=== PATIENT | male | born 1930 | race Caucasian/White ===

== ENCOUNTER 2018-08-09 12:56 | Inpatient (IN) | payer MEDICARE, MEDICAID ==
[2018-08-09 14:45] VITALS: BP 114/56
--- NOTE | 2018-08-09 17:08 | NUR ---
RECEIVED REPORT FROM RN AT [facility] PT ARRIVED ON UNIT AROUND 1445. ASSUMED CARE. VSS. [employer] OPERATOR HELPER PLACED TRACING AV PACED. PT CONFUSED AND VERY TIRED, LETHARGIC. ORIENTED TO SELF ONLY. DENIES PAIN. LUNGS COARSE AND WET THROUGHOUT. PT PLACED ON 2L PER NC, O2 SAT >90%. NPC NOTED. HEAD OF BED ELEVATED. PT SEEN BY CARDIOLOGY. ADMISSON ASSESSMENT, HISTORY AND VITALS COMPLETED CHARTED. PT ORIENTED TO ROOM BED AND CALL LIGHT. PT BEING TURNED Q2HRS FOR SKIN INTEGRITY - BOTTOM BLANCHABLE RED. FALL PRECAUTIONS IN PLACE. CALL LIGHT IS WITHIN REACH. HOURLY ROUNDING. WCTM.
[2018-08-09] MEDS ORDERED: TYLENOL325 MG PO (17:09)
[2018-08-09] MEDS ORDERED: ALBUTEROL2.5 MG/31 INH (17:09)
[2018-08-09] MEDS ORDERED: LIPITOR10 MG PO (17:11)
[2018-08-09] MEDS ORDERED: ASPIR 8181 MG PO (17:11)
[2018-08-09] MEDS ORDERED: MAALOX ADVANCE355 M1 PO (17:11)
[2018-08-09] MEDS ORDERED: COREG6.25 MG PO (17:12)
[2018-08-09] MEDS ORDERED: CELEXA20 MG PO (17:13)
[2018-08-09] MEDS ORDERED: PLAVIX 75 MG TA75 M1 PO (17:13)
[2018-08-09] MEDS ORDERED: IRON325 PO (17:14)
[2018-08-09] MEDS ORDERED: VITAMIN B-12500 MCG PO (17:14)
[2018-08-09] MEDS ORDERED: LASIX 40 MG TAB40 M2 PO (17:14)
[2018-08-09] MEDS ORDERED: NORCO 7.5-3251 EACH PO (17:15)
[2018-08-09] MEDS ORDERED: LISINOPRIL20 MG PO (17:16)
[2018-08-09] MEDS ORDERED: REMERON15 MG PO (17:17)
[2018-08-09] MEDS ORDERED: MILK OF MA400 MG/5 M PO (17:17)
[2018-08-09] MEDS ORDERED: PROTONIX40 M1 PO (17:18)
[2018-08-09] MEDS ORDERED: LIQUITEARS15 ML OPHTHALMIC (17:19)
[2018-08-09] MEDS ORDERED: SEROQUEL 25 MG25 M1 PO (17:20)
[2018-08-09] MEDS ORDERED: KLOR-CON 1010 MEQ PO (17:20)
[2018-08-09] MEDS ORDERED: SENNA8.6 MG PO (17:21)
[2018-08-09] MEDS ORDERED: TERAZOSIN HCL10 MG PO (17:23)
--- NOTE | 2018-08-09 17:38 | NUR ---
CONTACTED PT'S GUARDIAN MARIELY VELVET ([phone]) TO GIVE HER AN UPDATE ON PT. FOUND OUT THAT PT IS A RESIDENT OF [facility] IN [facility]. CALLED [facility] TO OBTAIN MED LIST - FACILITY TO FAX LIST.
--- NOTE | 2018-08-09 18:42 | NUR ---
VSS. PT ABLE TO WAKE UP FOR DINNER, ASSISTED PT WITH MEAL. PT HAD POOR APPETITE, BUT DID EAT HIS MASHED POTATOES AND SHERBERT. PT INCONTINENT OF URINE TWICE, BED CHANGED. UA ORDERED. ATTEMPTED TO PLACE CATHETER TO OBTAIN UA PER ORDER, BUT PT REFUSED SAYING "I CAN USE THE URINAL". WILL ALLOW PT TIME TO USE THE URINAL TO GET SAMPLE. PT CONTINUING TO BE TURNED. PT CONTINUES TO DENY PAIN. FALL PRECAUTIONS IN PLACE .CALL LIGHT IS WITHIN REACH. HOURLY ROUNDING PERFORMED.
[2018-08-09 20:10] VITALS: BP 100/33
[2018-08-09 23:21] LABS: BE 0.7 mmol/L (-2 to +3); PCO2 35.9 mmHg (35.0-45.0); PO2 71.2 mmHg (75.0-100.0); pH 7.451 (7.340-7.450)
[2018-08-10] VITALS (8 sets, daily range): BP systolic 89–133; BP diastolic 25–57
[2018-08-10 01:15] LABS: URINE BILIRUBIN NEGATIVE (Negative); URINE BLOOD 3+ (Negative); URINE CLARITY SL CLOUDY; URINE COLOR YELLOW; URINE GLUCOSE-RANDOM NEGATIVE (Negative); URINE KETONES NEGATIVE (Negative); URINE LEUKOCYTES TRACE (Negative); URINE NITRITE NEGATIVE (Negative); URINE PROTEIN TRACE (Negative)
[2018-08-10 03:10] LABS: SQUAMOUS >10 Many /LPF (0-3)
[2018-08-10 03:11] LABS: HYALINE CASTS >10 Many /LPF (None Seen)
[2018-08-10 03:14] LABS: URINE RBC >20 Many /HPF (0-2); URINE WBC 6-15 Few /HPF (0-5)
[2018-08-10 03:15] LABS: AMORPHOUS URATES Moderate /LPF (None Seen); BACTERIA >30 Many /HPF (None Seen)
--- NOTE | 2018-08-10 05:10 | NUR ---
PATIENT HAD LOW BP AND HIGH RESPIRATORY RATE AT BEGINNING OF SHIFT WITH COARSE AND WHEEZY LUNG SOUNDS. PHYSICIAN NOTIFIED AND ORDERS OBTAINED FOR ABGS AND BIPAP. HALF-WAY FAXED OVER COPY OF OHDNR ORDER AND DAUGHTER CONFIRMED THAT PATIENT WISHES TO BE DNR. PHYSICIAN NOTIFIED AND ORDERS OBTAINED FOR DNR. PATIENT IS PARTIALLY PROGRESSING TOWARDS GOALS: RR IMPROVED WITH LESS LABORED BREATHING. PATIENT AROUSABLE AND RESPONDING TO SIMPLE QUESTIONS AND COMMANDS. BP IMPROVED. U/A OBTAINED-REFER TO RESULTS. PATIENT REPOSITIONED Q2H FOR SKIN INTEGRITY. ARANA INSERTED FOR I&O. CALL LIGHT WITHIN REACH.
[2018-08-10 05:24] LABS: CALCIUM 9.4 mg/dL (8.5-10.1); CREATININE 2.6 mg/dL (0.6-1.3); MAGNESIUM 2.3 mg/dL (1.8-2.4); POTASSIUM 3.7 mmol/L (3.5-5.1)
--- NOTE | 2018-08-10 11:21 | NUR ---
PT ALERT, ORIENTED TO SELF ONLY. TELE TRACKING AV PACED AND ALL VSS ON 3L. GRANDDAUGHTER AT BEDSIDE THIS MORNING AND STATES THAT PT APPEARS TO BE AT BASELINE. UP TO CHAIR X2 ASSIST. ARANA TO DD WITH ADEQUATE URINE OUTPUT. EDUCATED ON SAFETY AND PLAN OF CARE. PLEASE SEE ASSESSMENT FOR ADDITIONAL INFORMATION. WILL CONTINUE TO MONITOR.
[2018-08-11] VITALS (9 sets, daily range): BP systolic 93–119; BP diastolic 26–52
[2018-08-11 05:37] LABS: CALCIUM 9.3 mg/dL (8.5-10.1); CREATININE 2.6 mg/dL (0.6-1.3); MAGNESIUM 2.3 mg/dL (1.8-2.4); POTASSIUM 3.5 mmol/L (3.5-5.1)
[2018-08-11 05:45] LABS: HEMATOCRIT 26.4 % (42.0-52.0); HEMOGLOBIN 8.7 gm/dL (14.0-18.0); MCH 30.5 pg (26.0-34.0); MCHC 33.1 g/dL (28.0-37.0); MCV 92.4 fL (80.0-100.0); MPV 9.7 fl. (7.2-11.1); NUCLEATED RBCS 0 /100WBC; PLATELET COUNT* 118 thou/uL (150-400); RBC 2.86 mil/uL (4.50-6.00); RDW-CV 15.3 % (10.5-14.5); WBC 8.3 thou/uL (4.0-11.0)
[2018-08-11 07:00] LABS: ESR (SEDRATE) 115 mm/hr (0-20)
--- NOTE | 2018-08-11 07:59 | NUR ---
PATIENT NOT PROGRESSING TOWARDS GOALS: PATIENT REMAINS LETHARGIC AND CONFUSED, ORIENTED X1. REQUIRING BIPAP DUE TO LABORED BREATHING AND INCREASED RESPIRATION. 500CC BOLUS GIVEN FOR LOW BP. IMPROVED BP AFTER. ARANA IN PLACE TO DD. CALL LIGHT WITHIN REACH
[2018-08-11 08:19] LABS: ABSOLUTE MONOCYTES 0.1 thou/uL (0.0-1.2); ABSOLUTE NEUTROPHILS 7.2 thou/uL (1.6-8.1); ATYPICAL LYMPHS 2 %; PLATELET ESTIMATE ADEQUATE
--- NOTE | 2018-08-11 18:48 | NUR ---
PT ALERT, CONFUSED-DEMENTIA HX. TELE TRACKING VPACED AND ALL VSS ON 4L NC THIS SHIFT. NO S/S CP OR SOA. POOR APPETITE, BUT DOES TOLERATE SOFT FOODS/PUDDING-ICE CREAM. Q2 TURNS-BOTTOM RED AND BLANCHABLE. ARANA TO DD WITH CONCENTRATED UO. FAMILY AT BEDSIDE MAJORITY OF SHIFT. EDUCATED ON SAFETY AND PLAN OF CARE. PLEASE SEE ASSESSMENT FOR ADDITIONAL INFORMATION. WILL CONT TO MONITOR
[2018-08-12] VITALS: BP 124/82
[2018-08-12 03:50] VITALS: BP 137/53
[2018-08-12 05:13] LABS: CALCIUM 9.3 mg/dL (8.5-10.1); CREATININE 2.5 mg/dL (0.6-1.3); POTASSIUM 3.3 mmol/L (3.5-5.1)
[2018-08-12 05:32] LABS: % SATURATION 30 % (20-39); IRON 37 ug/dL (50-175)
--- NOTE | 2018-08-12 07:02 | NUR ---
VITALS WNL. SEE MAR. SEE CHARTING. FALL PRECAUTIONS IN PLACE. HOURLY ROUNDING FOR SAFETY.
[2018-08-12 08:06] VITALS: BP 128/51
--- NOTE | 2018-08-12 09:04 | CON ---
[address] [address] CONSULTATION Name: KELECHI CHIRINOS Room: [address] IN M.R.#: [id number] Admission: 08/09/18 Attend Phys: Negrito Webber Discharge: Date of : 31 Report #: [id number] THIS REPORT FOR: //name// CC: FAM unknown Carlton Malloy DATE OF SERVICE: 08/11/2018 INFECTIOUS DISEASE CONSULTATION REASON FOR CONSULTATION: Single positive blood culture Gram-positive cocci. HISTORY OF PRESENT ILLNESS: An 88-year-old white man transferred from another hospital with history of non-ST elevation myocardial infarction. Subsequently, they called back advising us a single positive blood culture with Gram-positive cocci. The patient is unable to give any information, whatsoever. All information gathered from review of records. PAST MEDICAL HISTORY: Hypertension. Coronary artery disease. Myocardial infarction. Anemia of chronic disease. Macular degeneration. Dementia. Chronic kidney disease. DRUG ALLERGIES: None listed. MEDICATIONS: The patient is currently on treatment with p.r.n. hydrocodone APAP 5/325, Levaquin 750 mg IV daily, docusate 100 mg b.i.d., carvedilol 6.25 p.o. b.i.d., quetiapine fumarate 25 mg daily, pantoprazole 40 mg IV push daily, cyanocobalamin 1000 mcg p.o. daily, promethazine p.r.n., ondansetron p.r.n., bisacodyl daily, magnesium hydroxide, p.r.n. Benadryl, p.r.n. Tylenol, replacement of sodium and potassium per protocol. SOCIAL HISTORY: Unable to obtain. FAMILY HISTORY: Unable to obtain. REVIEW OF SYSTEMS: Unable to obtain. PHYSICAL EXAMINATION: GENERAL: An elderly white man, on BiPAP, not arousable, follows no commands. VITAL SIGNS: Temperature went up to 100.1 on 08/10/2018 at midnight; 97.9 today, pulse 61, respirations 20, BP 93/26. Weight 178 pounds. HEENMT: Eyes, mouth unable to examine. Follows no commands. NECK: Stiff. The patient is stiff all over. LUNGS: Few basilar crackles. Pacemaker pocket in the left infraclavicular region looks fine. HEART: S1, S2. [place] [address] CONSULTATION Name: CANDIS,KELECHI Carolyn Room: [address] IN [facility]#: [id number] Admission: 08/09/18 Attend Phys: Negrito Webber Discharge: Date of : 31 Report #: [id number] ABDOMEN: Soft, no masses or megaly. GENITALIA: Dumont catheter in place. EXTREMITIES: No pretibial edema. NEUROLOGIC: Unable to evaluate. LABORATORY DATA: Sodium 147, potassium 3.7, BUN 67, creatinine 2.6, glucose 143. Troponin elevated. Urinalysis abnormal and I found no urine culture, they will obtain one today. ABGs revealed pH 7.45, pCO2 of 35, pO2 of 71, bicarbonate 24, this set of gas is on 4 liters oxygen nasal cannula. MICROBIOLOGY DATA: Blood cultures x 2 obtained, they remain negative so far. RADIOLOGY EVALUATION: Chest x-ray revealed cardiomegaly, perihilar infiltrates, question pneumonitis versus congestive heart failure, permanent pacemaker, calcification of the thoracic aorta. Abdominal ultrasound revealed no hydronephrosis or obstruction. CT scan of the brain in the referring hospital revealed atrophy and advanced microvascular disease. ASSESSMENT: 1. Febrile illness and possible aspiration pneumonitis. 2. Non-ST elevation myocardial infarction. 3. Status post permanent pacemaker. 4. Chronic kidney disease. SUGGESTIONS: Recommend obtaining CBC with differential, ESR, CRP. Decrease dose of Levaquin 750 mg IV every 48 hours in view of chronic kidney disease. Broaden antibiotic spectrum coverage. We will add Zosyn. Dr. Malloy, thank you for requesting my suggestions. <ELECTRONICALLY SIGNED> By: Uriel Cain MD 08/12/18 0904 0524 [id number] Cain MD /nt
[2018-08-12 10:09] LABS: IgA 79 mg/dL (61-437); IgG 1433 mg/dL (700-1600); IgM 27 mg/dL (15-143)
[2018-08-12 10:09] LABS: KAPPA FREE LIGHT CHAINS 166.1 mg/L (3.3-19.4); LAMBDA FREE LIGHT CHAINS 21.1 mg/L (5.7-26.3)
[2018-08-12 11:43] VITALS: BP 125/50
--- NOTE | 2018-08-12 11:50 | NUR ---
0800: PT MORE ALERT AND CONVERSATIVE TODAY. TELE TRACKING VPACED AND ALL VSS ON 4L. DENIES CP, SOA. APPETITE REMAINS POOR OVERALL, BUT DID DRINK ENSURE SHAKE THIS AM. Q2 TURNS. BOTTOM RED, BUT BLANCHABLE. ARANA TO DD. FAMILY AT BEDSIDE. EDUCATED ON SAFETY AND PLAN OF CARE. BED ALARM ON. PLEASE SEE ASSESSMENT FOR ADDITIONAL INFORMATION. WILL CONTINUE TO MONITOR
--- NOTE | 2018-08-12 13:38 | NUR ---
MET WITH PT TO DISCUSS HOME SITUATION. PT ABLE TO ANSWER SIMPLE QUESTIONS. PER NURSE, PT'S DTR/VIKKI IS IN [place] AND HER DTRS HAVE BEEN HERE TO ASSIST WITH PT'S CARE. PT LIVES IN LTC AT [facility] IN [place], [place] [phone] FAX [phone]. SPOKE WITH SOY/CHARGE NURSE THERE. THEY WILL ACCEPT [place] BACK AT [place] AND SHE STATED PT'S DTR SHOULD BE HOME TOMORROW OR WED. DTR IS NURSE AT [facility] AND LIVES IN THIS AREA. PT HAS HAD BEHAVIORAL HEALTH STAYS RECENTLY PER SOY HE WANTS 'TO GO HOME.' SHE STATED HE NORMALLY DOES 'SUPER' THERE. NO FAMILY IN ROOM. NURSING TO CONTACT CM WHEN THEY ARRIVE. WILL FOLLOW
[2018-08-12 16:00] VITALS: BP 120/51
--- NOTE | 2018-08-12 16:36 | 2DMMODE ---
[place] [address] 2 D/M-MODE ECHOCARDIOGRAM Name: KELECHI CHIRINOS Room: [address] IN [facility]#: [id number] Admission: 08/09/18 Attend Phys: Carlton Malloy Discharge: Date of : 31 Date of Service: 08/12/18 1635 Report #: [id number] THIS REPORT FOR: //name// APPROVED REPORT Study performed: 08/12/2018 14:05:29 EXAM: Comprehensive 2D, Doppler, and color-flow Echocardiogram Patient Location: In-Patient Room #: 230 Status: routine BSA: 1.92 HR: 62 bpm BP: 128/51 mmHg Rhythm: NSR Other Information Study Quality: Good Indications Dyspnea Elevated Troponin 2D Dimensions IVSd: 12.76 (7-11mm) LVOT Diam: 23.29 (18-24mm) LVDd: 59.34 mm PWd: 13.44 (7-11mm) Ascending Ao: 34.15 (22-36mm) LVDs: 49.59 (25-40mm) Aortic Root: 41.33 mm Volumes Left Atrial Volume (Systole) LA ESV Index: 83.30 mL/m2 Aortic Valve AoV Peak Chato.: 1.16 m/s AO Peak Gr.: 5.39 mmHg LVOT Max P.96 mmHg AO Mean Gr.: 2.93 mmHg LVOT Mean P.90 mmHg LVOT Max V: 0.70 m/s AO V2 VTI: 24.36 cm LVOT Mean V: 0.44 m/s EMIGDIO (VTI): 2.42 cm2 LVOT V1 VTI: 13.81 cm AI [place]: 1.80 m/s2 AI PHT: 521.13 [place] [address] 2 D/M-MODE ECHOCARDIOGRAM Name: KELECHI CHIRINOS Room: [address] IN [facility]#: [id number] Admission: 08/09/18 Attend Phys: Carlton Malloy Discharge: Date of : 31 Date of Service: 08/12/18 1635 Report #: [id number] E/A Ratio: 1.14 MV Decel. Time: 250.24 ms MV E Max Chato.: 0.60 m/s MV PHT: 72.57 ms MVA (PHT): 3.03 cm2 TDI E/Lateral E': 6.67 E/Medial E': 10.00 Medial E' Chato.: 0.06 m/s Lateral E' Chato.: 0.09 m/s Pulmonary Valve PV Peak Chato.: 0.79 m/s PV Peak Gr.: 2.52 mmHg Tricuspid Valve RAP Estimate: 5.00 mmHg TR Peak Gr.: 39.88 mmHg RVSP: 44.00 mmHg PA Pressure: 44.00 mmHg Left Ventricle The left ventricle is normal size. There is moderately severe diffuse hypokinesis with inferobasilar akinesis. Mild concentric left ventricular hypertrophy. Left ventricular systolic function is moderate to severely decreased. LVEF is 30%. The left ventricular diastolic function is normal. Right Ventricle The right ventricle is normal size. The right ventricular systolic function is normal. Pacemaker lead is present in the right ventricle. Atria Left atrium is moderately dilated. The right atrium size is normal. Aortic Valve Mild aortic valve sclerosis. Mild aortic regurgitation. There is no aortic valvular stenosis. Mitral Valve There is mitral annular calcification. Mild to moderate mitral regurgitation. No evidence of mitral valve stenosis. Tricuspid Valve The tricuspid valve is normal in structure. Mild tricuspid regurgitation. Moderate [place] [address] 2 D/M-MODE ECHOCARDIOGRAM Name: CANDIS,KELECHI Carolyn Room: [address]#: [id number] Admission: 08/09/18 Attend Phys: Carlton Malloy Discharge: Date of : 31 Date of Service: 08/12/18 1635 Report #: [id number] Pulmonic Valve The pulmonary valve is normal in structure. Mild pulmonic regurgitation. Great Vessels The aortic root is normal in size. IVC is normal in size and collapses >50% with inspiration. Pericardium There is no pericardial effusion. <Conclusion> The left ventricle is normal size. Mild concentric left ventricular hypertrophy. Left ventricular systolic function is moderate to severely decreased. LVEF is 30%. The left ventricular diastolic function is normal. The right ventricle is normal size. Left atrium is moderately dilated. Mild aortic valve sclerosis. Mild aortic regurgitation. There is no aortic valvular stenosis. There is mitral annular calcification. Mild to moderate mitral regurgitation. No evidence of mitral valve stenosis. The tricuspid valve is normal in structure. Mild tricuspid regurgitation. Moderate pulmonary hypertension. IVC is normal in size and collapses >50% with inspiration. There is no pericardial effusion. There is moderately severe diffuse hypokinesis with inferobasilar akinesis. Pacemaker lead is present in the right ventricle. <ELECTRONICALLY SIGNED> By: Bandar Bryant MD, FACC 08/12/18 1635 1635 1635 Bandar Bryant MD, FACC /INF
[2018-08-12 20:00] VITALS: BP 124/53
[2018-08-13] VITALS: BP 136/56
[2018-08-13 04:00] VITALS: BP 136/58
--- NOTE | 2018-08-13 07:46 | NUR ---
VITALS WNL. SEE MAR. SEE CHARTING. PT BECAME CONFUSED AND AGITATED DURNING THE NIGHT, PT D/C IV AND PULLED OFF O2, PT ATTEMEPTED TO REMOVE ARANA. PT WAS GIVEN O2 AND PROVIDER WAS NOTIFED, MEDICATION WAS WAS GIVEN PT SATS RETURN TO NORMAL LIMITS. FALL PRECAUTIONS IN PLACE. HOURLY ROUNDING FOR SAFETY.
[2018-08-13 08:35] LABS: CREATININE 2.1 mg/dL (0.6-1.3); POTASSIUM 4.4 mmol/L (3.5-5.1)
[2018-08-13 09:00] VITALS: BP 96/46
[2018-08-13 09:45] LABS: ABSOLUTE EOSINOPHILS 0.2 thou/uL (0.0-0.7); ABSOLUTE MONOCYTES 0.6 thou/uL (0.0-1.2); ABSOLUTE NEUTROPHILS 4.2 thou/uL (1.6-8.1); BASOPHILS 0.5 %; EOSINOPHILS 3.4 %; HEMATOCRIT 28.3 % (42.0-52.0); HEMOGLOBIN 9.2 gm/dL (14.0-18.0); LYMPHOCYTES 16.8 %; MCH 30.3 pg (26.0-34.0); MCHC 32.5 g/dL (28.0-37.0); MCV 93.1 fL (80.0-100.0); MONOCYTES 9.4 %; MPV 8.7 fl. (7.2-11.1); NUCLEATED RBCS 0 /100WBC; PLATELET COUNT* 154 thou/uL (150-400); POLYS 69.9 %; RBC 3.04 mil/uL (4.50-6.00); RDW-CV 15.7 % (10.5-14.5); WBC 5.9 thou/uL (4.0-11.0)
[2018-08-13 11:42] VITALS: BP 117/50
--- NOTE | 2018-08-13 14:40 | NUR ---
MET WITH PT'S DTR/VIKKI AND UPDATED ON POC. PLAN IS FOR PT TO RETURN TO [facility] AT [place]. PER VIKKI, FACILITY WILL PROVIDE TRANSPORT HOME. VIKKI STATED PT AND HIS LIVE IN LTC IN SAME ROOM TOGETHER. VIKKI IS GUARDIAN. FAXED UPDATED CLINICAL TO [facility] [phone]
[2018-08-13 17:07] VITALS: BP 107/43
--- NOTE | 2018-08-13 18:31 | NUR ---
ASSUMED PT CARE AT 0700 PT IS ALERT AND ORIENTED X 1 PT SHOWS NO SIGNS OF PAIN PT IS ON 2L/NC PT WILL TAKE OFF O2 BECOME MORE CONFUSED AND PULL ON ARANA CATH THIS NURSE PAGED INFUSION WHO STARTED IV ON PT RESTARTED FLUIDS PER NEPHROLOGY, PT IS Q 2 TURNS, PT IS A FALL RISK BED ALARM IS ON, PHYSICIAN SPOKE WITH FAMILY REGARDING PT PROGNOSIS FAMILY STATES UNDERSTANDING, PT IS VPACED ON THE MONITOR, PT AROUND 1700 TOOK OXYGEN OFF PULLED OUT IV AND ARANA CATH PT BLEEDING FROM PENIS THIS NURSE PAGED PHYSICIAN WHO ORDERED TO KEEP IV AND ARANA OUT AND BLADDER SCAN PT OVERNIGHT CHECK FOR POSSIBLE OBSTRUCTION, WILL CONTINUE TO MONITOR
[2018-08-13 20:00] VITALS: BP 122/44
[2018-08-14 00:03] VITALS: BP 115/51
[2018-08-14 04:00] VITALS: BP 126/37
[2018-08-14 05:39] LABS: CALCIUM 8.9 mg/dL (8.5-10.1); CREATININE 1.8 mg/dL (0.6-1.3); POTASSIUM 4.5 mmol/L (3.5-5.1)
--- NOTE | 2018-08-14 07:10 | NUR ---
VITALS WNL. SEE MAR. SEE CHARTING. FALL PRECAUTIONS IN PLACE. HOURLY ROUNDING FOR SAFETY.
[2018-08-14 08:00] VITALS: BP 107/66
--- NOTE | 2018-08-14 09:05 | CON ---
[address] [address] CONSULTATION Name: KELECHI CHIRINOS Room: [address] IN M.R.#: [id number] Admission: 08/09/18 Attend Phys: Negrito Webber Discharge: Date of : 31 Report #: [id number] THIS REPORT FOR: //name// CC: FAM unknown Carlton Malloy DATE OF SERVICE: 08/11/2018 TYPE OF REPORT: Nephrology consultation. CONSULTING PHYSICIAN: Carlton Malloy D.O. REASON FOR NEPHROLOGY CONSULTATION: Acute kidney injury. REASON FOR ADMISSION: Increasing confusion and shortness of breath. HISTORY OF PRESENT ILLNESS: This is an 88-year-old male with past medical history of dementia, who lives in a longterm, who was brought in because of increasing confusion for 2-3 days to an outside facility first where he was found to have a creatinine of 2.4, hence he was transferred to [facility]. He was also found to be short of breath. At the outside facility, he got one dose of Lasix IV and another dose of Lasix 40 mg IV, was repeated here at [facility]. This was done because his chest x-ray showed bilateral airspace opacities and he also had a high brain natriuretic peptide. The patient has dementia. He has not been very verbal, he has been sleeping also when I went to see him this morning. His BUN is 73. This morning, his creatinine is 2.6, which is staying stable from yesterday, but BUN has gone up slightly. The patient's creatinine was 2.0. Two days before, he was brought in to the outside medical facility at the longterm and his creatinine was 1.13 last year. His home medications do include Lasix and lisinopril. A renal ultrasound did not show any evidence of any hydronephrosis. Overnight, the patient's breathing has been stable, although he required BiPAP initially when he came in. His breathing is currently stable on 4 liters of oxygen by nasal cannula. Echocardiogram has been ordered and his CRP was also noted to be 350, which is quite high. He has also been started on antibiotics for possible pneumonia in the form of Levaquin and Zosyn and ID is following him. ALLERGIES: No known drug allergies. REVIEW OF SYSTEMS: Could not obtain from him because of his mental status. PAST MEDICAL AND SURGICAL HISTORY: Includes congestive heart failure, ejection fraction is not known, coronary artery disease, hypertension, dementia, macular degeneration, GERD, dysphagia, esophageal stricture, anxiety, depression, prostate cancer, pacemaker placement, cardiac stent and squamous cell [place] [address] CONSULTATION Name: KELECHI CHIRINOS Room: [address] IN M.R.#: [id number] Admission: 08/09/18 Attend Phys: Negrito Webber Discharge: Date of : 31 Report #: [id number] SOCIAL HISTORY: Lives in a longterm. It looks like he was a smoker but does not smoke currently or take alcohol or use illicit drugs. FAMILY HISTORY: It is not contributory because of his advanced age. HOME MEDICATIONS: Which were reviewed from the patient's record, which include potassium, Ativan, Lasix, simvastatin, lisinopril 20 mg a day, ferrous sulfate. Quetiapine, magnesium hydroxide, simethicone, Maalox, docusate, pantoprazole, vitamin B12 and other medications reviewed. PHYSICAL EXAMINATION: VITAL SIGNS: Blood pressure is 109/45, respiratory rate 24, pulse rate 60, temperature 36.6 and his pulse ox was normal and he is on 3 liters of oxygen by nasal cannula. GENERAL: He is currently resting I tried to wake him up but he did not do so. HEAD, EYES, EARS, NOSE AND THROAT: Mucous membranes seem to be dry. NECK: There is no JVD. CHEST: Bilateral diminished breath sounds anteriorly, but no crackles heard. CARDIOVASCULAR SYSTEM: S1 and S2 normal. No murmurs. ABDOMEN: Soft, nontender and nondistended. Bowel sounds diminished. EXTREMITIES: There is no lower extremity edema, symmetrical lower extremity. GENITOURINARY: He has a Dumont catheter in place, draining some dark colored urine. NEUROLOGICAL FUNCTION: He is currently resting. PSYCHIATRIC: I cannot assess right now. SKIN: Warm and dry. Skin turgor is decreased. LABORATORY DATA: His hemoglobin is 8.7. His sodium is 145, his potassium is 3.5, his creatinine is 2.6, his BUN is 73 and other labs were reviewed. IMAGING DATA: Renal ultrasound and chest x-ray were reviewed. ASSESSMENT: 1. Acute kidney injury in the setting of likely intravascular volume depletion in the setting of possible pneumonia. Baseline creatinine 1.13 last year and 2.0 two days before he was brought into the hospital. Renal ultrasound did not show any acute abnormality and urinalysis shows evidence of more than 20 rbc's with trace protein with hyaline casts and 6-15 wbc's but also looks like a contaminated specimen with squamous epithelial cells and this is a Dumont specimen. 2. Anemia, rule out iron deficiency. 3. History of coronary artery disease, chronic congestive heart failure, ejection fraction is not known. 4. Likely bilateral pneumonia, on antibiotics as per Infectious Disease. 5. History of hypertension and currently blood pressure is running low, [facility] [address] [place] [address] CONSULTATION Name: KELECHI CHIRINOS Room: [address] IN .R.#: [id number] Admission: 08/09/18 Attend Phys: Negrito Webber Discharge: Date of : 31 Report #: [id number] requiring normal saline bolus overnight. 6. History of dementia. 7. Elevated troponin, possible [id number] myocardial infarction. PLAN: 1. Clinically, the patient currently looks intravascularly volume depleted or hypovolemic, so I will go ahead and give him normal saline 50 mL an hour for a total of 1 liter. 2. Avoid diuretics and nephrotoxic agents. 3. Antibiotics as per primary team. 4. We will also check serum immunofixation in the setting of serum kappa to lambda light chain ratio and iron labs. Thank you for this consultation. I discussed the plan with the patient's nurse. Also, try to keep his MAP around 70. Thank you for your consultation. We will continue to follow along with you. <ELECTRONICALLY SIGNED> By: Fabienne Silva MD 08/14/18 0905 0812 0210Fabienne Silva MD /nt
--- NOTE | 2018-08-14 09:05 | CON ---
[address] [address] CONSULTATION Name: KELECHI CHIRINOS Room: [address] IN M.R.#: [id number] Admission: 08/09/18 Attend Phys: Negrito Webber Discharge: Date of : 31 Report #: [id number] THIS REPORT FOR: //name// CC: JOURDAN Malloy INCOMPLETE DICTATION NEPHROLOGY CONSULTATION DICTATION ENDS HERE. <ELECTRONICALLY SIGNED> By: Fabienne Silva MD 08/14/18 0905 0806 [id number] Silva MD /nt
--- NOTE | 2018-08-14 11:05 | NUR ---
ASSUMED PT CARE AT 0700 PT IS ALERT AND ORIENTED X 1 PT IS CONFUSED AND IMPULSIVE, PT IS Q 2 TURNS, PT SHOWS NO SIGNS OF PAIN OR SOA ON 4L/NC, PT CLEARED BY NEPHROLOGY FOR DISCHARGE NEEDS TO FOLLOW UP FOR TEST RESULTS, WILL CONTINUE TO MONITOR
[2018-08-14 12:40] VITALS: BP 136/58
[2018-08-14] MEDS ORDERED: AUGMENTIN 500-1 EACH PO (12:51)
--- NOTE | 2018-08-14 14:23 | NUR ---
ORDERS RECEIVED FOR DC BACK TO LTC[facility] IN [facility]. MET WITH PT AND DTR/VIKKI, IN AGREEMENT. VIKKI IS INTERESTED IN HOSPICE AND WANTS TO USE [facility]. CALL TO [place], SPOKE YASMEEN NEVAREZ/CHARLEY AND MADE AWARE PT RETURNING. FAXED DC ORDERS AND INFO TO [phone]. CALLED AND FAXED HOSPICE REFERRAL TO [facility] [phone] FAX [phone], THEY WILL ARRANGE TO MEET WITH PT AND DTR UPON RETURN TO [place] LATER TODAY. PT NOT ABLE TO TOLERATE SITTING UP STILL CONFUSED AND HAS HAD INT. RESTRAINS IN LAST 24HRS, SET UP THRU [employer] FOR [facility] TO TRANSPORT AROUND 3PM. FAXED [facility] FORM TO [place] AT [phone]. RN HAS NUMBER TO CALL REPOR
== END 2018-08-14 15:51 | DRG 177 ==
LOC: M.2W 12:56
PROVIDERS: Internal Medicine; Internal Medicine Infectious Disease; Specialist; ADMIT Internal Medicine
PROC: 5A09357 Assistance with Respiratory Ventilation, Less than 24 Consecutive Hours, Continuous Positive Airway Pressure (ICD-10-PCS; principal; 2018-08-10)
DX: J15.6 Pneumonia due to other Gram-negative bacteria (principal); I21.4 Non-ST elevation (NSTEMI) myocardial infarction; I50.23 Acute on chronic systolic (congestive) heart failure; N17.9 Acute kidney failure, unspecified; I13.0 Hypertensive heart and chronic kidney disease with heart failure and stage 1 through stage 4 chronic kidney disease, or unspecified chronic kidney disease; E87.0 Hyperosmolality and hypernatremia; N39.0 Urinary tract infection, site not specified; I49.5 Sick sinus syndrome; N18.3 Chronic kidney disease, stage 3 (moderate); E78.5 Hyperlipidemia, unspecified; I27.20 Pulmonary hypertension, unspecified; K59.00 Constipation, unspecified; D63.8 Anemia in other chronic diseases classified elsewhere; E87.6 Hypokalemia; F03.90 Unspecified dementia, unspecified severity, without behavioral disturbance, psychotic disturbance, mood disturbance, and anxiety; I25.10 Atherosclerotic heart disease of native coronary artery without angina pectoris; F32.9 Major depressive disorder, single episode, unspecified; F41.9 Anxiety disorder, unspecified; H35.30 Unspecified macular degeneration; K21.9 Gastro-esophageal reflux disease without esophagitis; Z95.0 Presence of cardiac pacemaker; Z85.828 Personal history of other malignant neoplasm of skin; Z95.5 Presence of coronary angioplasty implant and graft; I25.2 Old myocardial infarction; Z85.46 Personal history of malignant neoplasm of prostate